=== PATIENT | male | born 1990 | race Caucasian/White ===

== ENCOUNTER 2022-05-24 20:08 | Emergency (ER) | payer BC ==
[2022-05-24 21:26] LABS: CORONAVIRUS COVID-19 NAA NEGATIVE (NEGATIVE)
[2022-05-24] MEDS ORDERED: Ondansetron 4 MG/2 ML SDV IVPUSH ONE (21:40)
[2022-05-24 23:40] VITALS: BP 112/75; PULSE 69
== END 2022-05-24 23:38 | disposition home or self-care (01) ==
LOC: JD.ED 20:08
DX: R06.02 Shortness of breath (principal); Z20.822 Contact with and (suspected) exposure to COVID-19; Z87.891 Personal history of nicotine dependence
CPT/HCPCS: 0241U; 36415; 71045; 80053; 85025; 93005; 96374; 99285; J2405; 99284